=== PATIENT | female | born 1945 | race Caucasian/White ===

== ENCOUNTER 2017-08-26 21:51 | Emergency (ER) | payer MEDICARE, BC | END 2017-08-26 22:57 | disposition home or self-care (01) | LOC: SCSER 21:51 | DX: J02.9 Acute pharyngitis, unspecified (principal); E03.9 Hypothyroidism, unspecified; E11.9 Type 2 diabetes mellitus without complications; I71.9 Aortic aneurysm of unspecified site, without rupture; I10 Essential (primary) hypertension; Z79.891 Long term (current) use of opiate analgesic; Z79.899 Other long term (current) drug therapy | CPT/HCPCS: 99282 ==

== ENCOUNTER 2017-11-08 14:55 | Outpatient (CLI) | payer MEDICARE, BC | END 2017-11-08 14:56 | disposition home or self-care (01) | LOC: BICMAMMO 14:55 | PROVIDERS: ATTEND Internal Medicine Medical Oncology | DX: C50.811 Malignant neoplasm of overlapping sites of right female breast (principal); Z85.3 Personal history of malignant neoplasm of breast; Z85.43 Personal history of malignant neoplasm of ovary; Z85.528 Personal history of other malignant neoplasm of kidney | CPT/HCPCS: 77065; G0279 ==

== ENCOUNTER 2018-11-23 09:02 | Outpatient (CLI) | payer MEDICARE, BC ==
--- NOTE | 2018-11-23 09:57 | MMO ---
Left Breast MAMMO Unilat Diag DDI LT+ARTEM. CLINICAL HISTORY: Patient is 73 years old and is seen for diagnostic exam. The patient has no family history of breast cancer. The patient has a history of kidney cancer in 2012 and ovarian cancer 1993. The patient has a history of right Ultrasound Guided Core Biopsy in September, - malignant, right Lumpectomy in September, - dcis and right Mastectomy in September, - dcis. VIEWS: The views performed were: left craniocaudal with tomosynthesis; left mediolateral oblique with tomosynthesis; and left mediolateral with tomosynthesis. FILMS COMPARED: The present examination has been compared to prior imaging studies performed at [facility] on 10/15/2015, 10/16/2016 and 11/08/2017, and at [facility] on 09/13/2014. MAMMOGRAM FINDINGS: There are scattered fibroglandular densities. There are stable benign appearing calcifications seen in the left breast. There are no suspicious masses, suspicious calcifications, or new areas of architectural distortion. IMPRESSION: THERE IS NO MAMMOGRAPHIC EVIDENCE OF MALIGNANCY. A ROUTINE FOLLOW-UP MAMMOGRAM IN 1 YEAR IS RECOMMENDED. THE RESULTS OF THIS EXAM WERE SENT TO THE PATIENT. ACR BI-RADS Category 2 - Benign finding MAMMOGRAPHY NOTE: 1. A negative mammogram report should not delay a biopsy if a dominant of clinically suspicious mass is present. 2. Approximately 10% to 15% of breast cancers are not detected by mammography. 3. Adenosis and dense breasts may obscure an underlying neoplasm. Reported by: SYLVIA HEREDIA MD Electonically Signed: [id number]
--- NOTE | 2018-11-23 13:04 | BD ---
DEXA SCAN 11/23/2018: PROVIDED CLINICAL HISTORY: Postmenopausal screening. FINDINGS: BMD (g/cm2) RIGHT: Femoral Neck: 0.853 T-Score: 0.0 Total Femur: 1.030 T-Score: 0.7 LEFT: Femoral Neck: 0.636 T-Score: -1.9 Total Femur: 0.686 T-Score: -2.1 Ten-year fracture risk: Major osteoporotic fracture 11%. Hip fracture 2.1%. Impression: Calculated bone mineral density in the left femoral neck meets WHO criteria for osteopenia and places the patient at increased risk for fracture. POS: TPC
== END 2018-11-23 09:03 | disposition home or self-care (01) ==
LOC: BICMAMMO 09:02
PROVIDERS: ATTEND Internal Medicine Medical Oncology
DX: Z13.820 Encounter for screening for osteoporosis (principal); C50.811 Malignant neoplasm of overlapping sites of right female breast; M85.852 Other specified disorders of bone density and structure, left thigh; Z85.43 Personal history of malignant neoplasm of ovary; Z85.528 Personal history of other malignant neoplasm of kidney
CPT/HCPCS: 77065; 77080; G0279

== ENCOUNTER 2019-12-12 14:44 | Outpatient (CLI) | payer MEDICARE, BC ==
--- NOTE | 2019-12-12 15:29 | MMO ---
Left Breast MAMMO Unilat Diag DDI LT+ARTEM. CLINICAL HISTORY: Patient is 74 years old and is seen for diagnostic exam. The patient has no family history of breast cancer. The patient has a history of kidney cancer in 2012 and ovarian cancer 1993. The patient has a history of right Ultrasound Guided Core Biopsy in September, - malignant, right Lumpectomy in September, - dcis and right Mastectomy in September, - dcis. VIEWS: The views performed were: left craniocaudal with tomosynthesis; left mediolateral oblique with tomosynthesis; and left mediolateral with tomosynthesis. FILMS COMPARED: The present examination has been compared to prior imaging studies performed at [facility] on 10/15/2015, 10/16/2016, 11/08/2017 and 11/23/2018. This study has been interpreted with the assistance of computer-aided detection. MAMMOGRAM FINDINGS: There are scattered fibroglandular densities. Finding 1: There are stable benign appearing calcifications seen in the left breast. Finding 2: There is a stable intramammary lymph node seen in the left breast. There are no suspicious masses, suspicious calcifications, or new areas of architectural distortion. IMPRESSION: THERE IS NO MAMMOGRAPHIC EVIDENCE OF MALIGNANCY. A ROUTINE FOLLOW-UP MAMMOGRAM IN 1 YEAR IS RECOMMENDED. THE RESULTS OF THIS EXAM WERE SENT TO THE PATIENT. ACR BI-RADS Category 2 - Benign finding MAMMOGRAPHY NOTE: 1. A negative mammogram report should not delay a biopsy if a dominant of clinically suspicious mass is present. 2. Approximately 10% to 15% of breast cancers are not detected by mammography. 3. Adenosis and dense breasts may obscure an underlying neoplasm. Reported by: HEIKE HINSON MD Electonically Signed: [id number]
--- NOTE | 2019-12-12 15:47 | BD ---
Exam: DEXA Bone Density 12/12/19 INDICATIONS: Postmenopausal screening. FINDINGS: Femoral neck: BMD (g/cm2) T-SCORE Right femoral neck 0.911 0.6 Total: 0.987 0.4 Right femur density 11/23/18: 1.030 Left femoral neck 0.654 -1.8 Total: 0.674 -2.2 Left femoral density 11/23/18: 0.686 Impression: 1. Bone mineral density of the left femoral neck indicates osteopenia. 2. Bone mineral density of the right femoral neck is within normal range. POS: AGW
== END 2019-12-12 14:45 | disposition home or self-care (01) ==
LOC: BICMAMMO 14:44
PROVIDERS: ATTEND Internal Medicine Medical Oncology
DX: Z08 Encounter for follow-up examination after completed treatment for malignant neoplasm (principal); Z13.820 Encounter for screening for osteoporosis; N95.8 Other specified menopausal and perimenopausal disorders; M85.852 Other specified disorders of bone density and structure, left thigh; Z85.3 Personal history of malignant neoplasm of breast; Z90.11 Acquired absence of right breast and nipple
CPT/HCPCS: 77065; 77080; G0279

== ENCOUNTER 2020-06-17 15:17 | Outpatient (CLI) | payer MEDICARE, BC | END 2020-06-17 15:18 | disposition home or self-care (01) | LOC: BICRAD 15:17 | PROVIDERS: ATTEND Family Medicine | DX: M54.2 Cervicalgia (principal); M25.551 Pain in right hip; M25.552 Pain in left hip; M25.511 Pain in right shoulder; M25.512 Pain in left shoulder | CPT/HCPCS: 72040; 72100 ==

== ENCOUNTER 2021-01-01 13:51 | Outpatient (CLI) | payer MEDICARE, BC | END 2021-01-01 13:52 | disposition home or self-care (01) | LOC: BICMAMMO 13:51 | PROVIDERS: ATTEND Internal Medicine Medical Oncology | DX: Z12.31 Encounter for screening mammogram for malignant neoplasm of breast (principal); M85.89 Other specified disorders of bone density and structure, multiple sites; Z78.0 Asymptomatic menopausal state; Z85.3 Personal history of malignant neoplasm of breast; Z90.11 Acquired absence of right breast and nipple | CPT/HCPCS: 77063; 77067; 77080 ==